=== PATIENT | female | born 1965 ===

== ENCOUNTER → 2019-06-16 | Outpatient (CLI) | payer SELFPAY | END | disposition home or self-care (01) | LOC: LABWHC1 10:31 | PROVIDERS: ATTEND Pediatrics Pediatric Infectious Diseases | DX: Z22.7 Latent tuberculosis (principal) | CPT/HCPCS: 36415; 86480 ==

== ENCOUNTER 2019-08-01 20:04 | Emergency (ER) | payer OTHER ==
--- NOTE | 2019-08-01 20:12 | ED ---
General Adult HPI - General Stated complaint: Fall Time Seen by Provider: 08/01/19 20:09 - History of Present Illness Initial comments: Dictation was produced using [employer] dictation software. please excuse any grammatical, word or spelling errors. This patient was cared for during a federal and state declared state of emergency secondary to Covid 19 Chief Complaint: 54-year-old female past medical history diabetes presents with bilateral upper extremity pain and head pain after fall. History of Present Illness: 54-year-old female she suffered a fall after losing her balance. Patient allegedly fell from a height of approximately 6 feet. Patient tried to catch herself. She fell on outstretched hands however she still ended up striking her head on the concrete. Patient states she has pain to bilateral upper extremities and her forehead. Denies any visual loss. Denies any neck pain. The ROS documented in this emergency department record has been reviewed and confirmed by me. Those systems with pertinent positive or negative responses have been documented in the HPI. All other systems are other negative and/or noncontributory. PHYSICAL EXAM: General Impression: Alert and oriented x3, not in acute distress HEENT: Large left forehead hematoma, extra-ocular movements intact, pupils equal and reactive to light bilaterally, mucous membranes moist. Cardiovascular: Heart regular rate and rhythm Chest: Able to complete full sentences, no retractions, no tachypnea Abdomen: abdomen soft, non-tender, non-distended, no organomegaly Musculoskeletal: Pulses present and equal in all extremities, no peripheral edema Bilateral upper extremities. Gross 40 to the left elbow, gross a former to the right wrist, bilateral radial pulses intact. Neurologically intact. Motor: no focal deficits noted Neurological: CN II-XII grossly intact, no focal motor or sensory deficits noted Skin: Intact with no visualized rashes Psych: Normal affect and mood ED course: 54-year-old female presents after fall. Laboratory evaluation obtained. CBC unremarkable. Coag panel is unremarkable. Metabolic panel shows lactic acidosis 3.8 this is likely because patient wasn't pain. Rest metabolic panel is unremarkable. Serum alcohol is 11. Computed tomography scan of the head and C-spine shows no acute age cranial processes. C-spine is not acute. There is a large left frontal scalp hematoma. Chest x- ray is unremarkable. Bilateral hand and wrist x-ray shows a right impacted comminuted transverse fracture of the distal right radius. Bilateral elbow x- rays obtained showing posterior fracture dislocation of the left elbow. There appears to be a 10 mm intra-articular Vinny fracture of the left radial head. Patient with procedural sedation with fracture dislocation reduction of the left elbow and reduction of the right wrist using propofol. Patient tolerated procedure well. Postreduction images shows acceptable reduction of the right wrist and left elbow. Discussed patient case Dr. Enriquez. Dr. Enriquez requests that CT of the left elbow be obtained. Laceration was repaired at bedside. Please see laceration note and procedural section. CT of the elbow was discussed with orthopedic surgery and radiology. CT imaging of patient's elbow after successful reduction redislocated. There is concern of unstable elbow. Patient splint was readjusted. We do not have elbow specialists at this time. Is recommended that patient be transferred to higher level of care. Discussed patient case with Dr. Park, orthopedic surgery at [facility] who is willing to accept patient for transfer. Patient is agreeable to plan. Case was discussed with Dr. Damon who is willing to accept patient care for ER to ER transfer. EKG interpretation: Ventricular rate 99, normal sinus rhythm, AK interval 170, QRS 82, QTc 467. No AK prolongation, no QTC prolongation, no ST or T-wave changes noted. Overall, this EKG is unremarkable - Related Data Home Medications Medication Instructions Recorded Confirmed Empagliflozin [Jardiance] 25 mg PO DAILY 08/01/19 08/01/19 Olmesartan [Benicar] 20 mg PO DAILY 08/01/19 08/01/19 PARoxetine HCL [Paxil] 30 mg PO DAILY 08/01/19 08/01/19 Allergies Allergy/AdvReac Type Severity Reaction Status Date / Time metformin AdvReac Nausea & Verified 08/01/19 22:32 Vomiting Review of Systems ROS Statement: Those systems with pertinent positive or pertinent negative responses have been documented in the HPI. ROS Other: All systems not noted in ROS Statement are negative. Course Vital Signs 08/01/19 08/01/19 08/01/19 20:12 21:06 22:06 Temperature 98 F Pulse Rate 89 85 80 Respiratory 18 18 17 Rate Blood Pressure 161/64 130/76 153/67 O2 Sat by Pulse 100 99 98 Oximetry 08/01/19 08/01/19 08/01/19 22:10 22:15 22:20 Temperature Pulse Rate 82 80 88 Respiratory 17 17 17 Rate Blood Pressure 158/60 127/64 144/75 O2 Sat by Pulse 98 99 98 Oximetry 08/01/19 08/01/19 08/01/19 22:25 22:30 22:45 Temperature Pulse Rate 80 86 80 Respiratory 17 17 18 Rate Blood Pressure 135/71 143/70 153/67 O2 Sat by Pulse 98 99 99 Oximetry 08/01/19 08/01/19 08/02/19 23:15 23:45 00:15 Temperature Pulse Rate 81 82 78 Respiratory 17 17 17 Rate Blood Pressure 140/73 136/70 142/68 O2 Sat by Pulse 99 99 99 Oximetry Procedures - Laceration Laceration #1 Consent Obtained: verbal consent, written consent Indication: laceration Site: face Size (cm): 1 Description: linear (forehead) Depth: simple, single layer Anesthesia Technique: local infiltration Type of Sutures: nylon Size of Sutures: 5-0 Technique: simple, interrupted (2 stitches) Patient Tolerated Procedure: well - Orthopedic Fracture Reduction Fracture #1 Consent Obtained: verbal consent, written consent Side: right Fracture Reduction Location: radius (wrist) Analgesia: procedural sedation Technique: direct manipulation Post Reduction X-rays Demonstrate: acceptable reduction Post-Reduction Neuro Exam: intact Post-Reduction Vascular Exam: intact Splint Applied: Yes (sugar tong) - Orthopedic Joint Reduction Joint #1 Consent Obtained: verbal consent, written consent Side: left Joint Reduction Location: elbow Analgesia: procedural sedation Technique Used: traction/counter-traction Post-Reduction Neuro Exam: intact Post-Reduction Vascular Exam: intact Post Reduction X-Ray Obtained: Yes Splint Applied: Yes (sugar tong) - Procedural Sedation Procedural Sedation Start Time: 10:10 Procedural Sedation Stop Time: 10:15 Indications: fracture/dislocation reduction ASA Class: II Mallampati Airway Score: 3 Preparation: environmental monitoring technician applied, pulse oximeter, capnometry used, supplemental O2 applied IV Propofol Dose (mgs): 150 Complications: none Interventions: oxygen applied Patient Tolerated Procedure: well Medical Decision Making - Lab Data Result diagrams: 08/01/19 20:27 08/01/19 20:27 Lab Results 08/01/19 08/01/19 08/01/19 Range/Units 20:12 20:17 20:27 WBC 7.8 (3.8-10.6) k/uL RBC 4.89 (3.80-5.40) m/uL Hgb 14.4 (11.4-16.0) gm/dL Hct 43.2 (34.0-46.0) % MCV 88.3 (80.0-100.0) fL MCH 29.3 (25.0-35.0) pg MCHC 33.2 (31.0-37.0) g/dL RDW 14.2 (11.5-15.5) % Plt Count 227 (150-450) k/uL Neutrophils % 57 % Lymphocytes % 35 % Monocytes % 4 % Eosinophils % 2 % Basophils % 1 % Neutrophils # 4.5 (1.3-7.7) k/uL Lymphocytes # 2.7 (1.0-4.8) k/uL Monocytes # 0.3 (0-1.0) k/uL Eosinophils # 0.2 (0-0.7) k/uL Basophils # 0.1 (0-0.2) k/uL PT (9.0-12.0) sec INR (<1.2) APTT (22.0-30.0) sec Sodium (137-145) mmol/L Potassium (3.5-5.1) mmol/L Chloride (98-107) mmol/L Carbon Dioxide (22-30) mmol/L Anion Gap mmol/L BUN (7-17) mg/dL Creatinine (0.52-1.04) mg/dL Est GFR (CKD-EPI)AfAm (>60 ml/min/1.73 sqM) Est GFR (CKD-EPI)NonAf (>60 ml/min/1.73 sqM) Glucose (74-99) mg/dL Lactic Ac Sepsis Rflx Plasma Lactic Acid Dain (0.7-2.0) mmol/L Calcium (8.4-10.2) mg/dL Total Bilirubin (0.2-1.3) mg/dL AST (14-36) U/L ALT (4-34) U/L Alkaline Phosphatase (38-126) U/L Total Creatine Kinase (30-135) U/L CK-MB (CK-2) (0.0-2.4) ng/mL CK-MB (CK-2) Rel Index Troponin I (0.000-0.034) ng/mL Total Protein (6.3-8.2) g/dL Albumin (3.5-5.0) g/dL Amylase (30-110) U/L Lipase (23-300) U/L Serum Alcohol mg/dL Blood Type A Positive Blood Type Confirm A Positive Blood Type Recheck Bld Type Recheck Status Antibody Screen NEGATIVE Spec Expiration Date 08/01/19 08/01/19 08/01/19 Range/Units 20:27 20:27 20:27 WBC (3.8-10.6) k/uL RBC (3.80-5.40) m/uL Hgb (11.4-16.0) gm/dL Hct (34.0-46.0) % MCV (80.0-100.0) fL MCH (25.0-35.0) pg MCHC (31.0-37.0) g/dL RDW (11.5-15.5) % Plt Count (150-450) k/uL Neutrophils % % Lymphocytes % % Monocytes % % Eosinophils % % Basophils % % Neutrophils # (1.3-7.7) k/uL Lymphocytes # (1.0-4.8) k/uL Monocytes # (0-1.0) k/uL Eosinophils # (0-0.7) k/uL Basophils # (0-0.2) k/uL PT 9.9 (9.0-12.0) sec INR 1.0 (<1.2) APTT 24.5 (22.0-30.0) sec Sodium 136 L (137-145) mmol/L Potassium 3.9 (3.5-5.1) mmol/L Chloride 98 (98-107) mmol/L Carbon Dioxide 25 (22-30) mmol/L Anion Gap 13 mmol/L BUN 11 (7-17) mg/dL Creatinine 0.74 (0.52-1.04) mg/dL Est GFR (CKD-EPI)AfAm >90 (>60 ml/min/1.73 sqM) Est GFR (CKD-EPI)NonAf >90 (>60 ml/min/1.73 sqM) Glucose 141 H (74-99) mg/dL Lactic Ac Sepsis Rflx Plasma Lactic Acid Dain (0.7-2.0) mmol/L Calcium 9.9 (8.4-10.2) mg/dL Total Bilirubin 0.7 (0.2-1.3) mg/dL AST 46 H (14-36) U/L ALT 33 (4-34) U/L Alkaline Phosphatase 71 (38-126) U/L Total Creatine Kinase 231 H (30-135) U/L CK-MB (CK-2) 1.9 (0.0-2.4) ng/mL CK-MB (CK-2) Rel Index 0.8 Troponin I <0.012 (0.000-0.034) ng/mL Total Protein 7.9 (6.3-8.2) g/dL Albumin 5.0 (3.5-5.0) g/dL Amylase 62 (30-110) U/L Lipase 137 (23-300) U/L Serum Alcohol 11 mg/dL Blood Type Blood Type Confirm Blood Type Recheck Bld Type Recheck Status Antibody Screen Spec Expiration Date 08/01/19 08/01/19 08/01/19 Range/Units 20:27 20:27 20:58 WBC (3.8-10.6) k/uL RBC (3.80-5.40) m/uL Hgb (11.4-16.0) gm/dL Hct (34.0-46.0) % MCV (80.0-100.0) fL MCH (25.0-35.0) pg MCHC (31.0-37.0) g/dL RDW (11.5-15.5) % Plt Count (150-450) k/uL Neutrophils % % Lymphocytes % % Monocytes % % Eosinophils % % Basophils % % Neutrophils # (1.3-7.7) k/uL Lymphocytes # (1.0-4.8) k/uL Monocytes # (0-1.0) k/uL Eosinophils # (0-0.7) k/uL Basophils # (0-0.2) k/uL PT (9.0-12.0) sec INR (<1.2) APTT (22.0-30.0) sec Sodium (137-145) mmol/L Potassium (3.5-5.1) mmol/L Chloride (98-107) mmol/L Carbon Dioxide (22-30) mmol/L Anion Gap mmol/L BUN (7-17) mg/dL Creatinine (0.52-1.04) mg/dL Est GFR (CKD-EPI)AfAm (>60 ml/min/1.73 sqM) Est GFR (CKD-EPI)NonAf (>60 ml/min/1.73 sqM) Glucose (74-99) mg/dL Lactic Ac Sepsis Rflx Y Plasma Lactic Acid Dain 3.8 H* (0.7-2.0) mmol/L Calcium (8.4-10.2) mg/dL Total Bilirubin (0.2-1.3) mg/dL AST (14-36) U/L ALT (4-34) U/L Alkaline Phosphatase (38-126) U/L Total Creatine Kinase (30-135) U/L CK-MB (CK-2) (0.0-2.4) ng/mL CK-MB (CK-2) Rel Index Troponin I (0.000-0.034) ng/mL Total Protein (6.3-8.2) g/dL Albumin (3.5-5.0) g/dL Amylase (30-110) U/L Lipase (23-300) U/L Serum Alcohol mg/dL Blood Type Blood Type Confirm Blood Type Recheck No Previous Record Bld Type Recheck Status CABO Indicated Antibody Screen Spec Expiration Date 08/04/2019 - 232608/01/19 Range/Units 23:11 WBC (3.8-10.6) k/uL RBC (3.80-5.40) m/uL Hgb (11.4-16.0) gm/dL Hct (34.0-46.0) % MCV (80.0-100.0) fL MCH (25.0-35.0) pg MCHC (31.0-37.0) g/dL RDW (11.5-15.5) % Plt Count (150-450) k/uL Neutrophils % % Lymphocytes % % Monocytes % % Eosinophils % % Basophils % % Neutrophils # (1.3-7.7) k/uL Lymphocytes # (1.0-4.8) k/uL Monocytes # (0-1.0) k/uL Eosinophils # (0-0.7) k/uL Basophils # (0-0.2) k/uL PT (9.0-12.0) sec INR (<1.2) APTT (22.0-30.0) sec Sodium (137-145) mmol/L Potassium (3.5-5.1) mmol/L Chloride (98-107) mmol/L Carbon Dioxide (22-30) mmol/L Anion Gap mmol/L BUN (7-17) mg/dL Creatinine (0.52-1.04) mg/dL Est GFR (CKD-EPI)AfAm (>60 ml/min/1.73 sqM) Est GFR (CKD-EPI)NonAf (>60 ml/min/1.73 sqM) Glucose (74-99) mg/dL Lactic Ac Sepsis Rflx Plasma Lactic Acid Dain 2.2 H* (0.7-2.0) mmol/L Calcium (8.4-10.2) mg/dL Total Bilirubin (0.2-1.3) mg/dL AST (14-36) U/L ALT (4-34) U/L Alkaline Phosphatase (38-126) U/L Total Creatine Kinase (30-135) U/L CK-MB (CK-2) (0.0-2.4) ng/mL CK-MB (CK-2) Rel Index Troponin I (0.000-0.034) ng/mL Total Protein (6.3-8.2) g/dL Albumin (3.5-5.0) g/dL Amylase (30-110) U/L Lipase (23-300) U/L Serum Alcohol mg/dL Blood Type Blood Type Confirm Blood Type Recheck Bld Type Recheck Status Antibody Screen Spec Expiration Date Disposition Clinical Impression: Fracture dislocation of elbow joint, Wrist fracture Disposition: OTHER INSTITUTION NOT DEFINED Condition: Fair Referrals: None,Stated [Primary Care Provider] - 1-2 days Time of Disposition: 00:48 - Out of Hospital Transfer - Req. Specs Out of Hospital Transfer - Requested Specifics: Other Emergency Center ([facility]
[2019-08-01 20:16] VITALS: TEMP 98
[2019-08-01 20:33] LABS: Basophils # (A) 0.1 k/uL (0-0.2); Basophils % (A) 1 %; Eosinophils # (A) 0.2 k/uL (0-0.7); Eosinophils % (A) 2 %; HCT 43.2 % (34.0-46.0); HGB 14.4 gm/dL (11.4-16.0); Lymphocytes # (A) 2.7 k/uL (1.0-4.8); Lymphocytes % (A) 35 %; MCH 29.3 pg (25.0-35.0); MCHC 33.2 g/dL (31.0-37.0); MCV 88.3 fL (80.0-100.0); Mean Platelet Volume 7.1; Monocytes # (A) 0.3 k/uL (0-1.0); Monocytes % (A) 4 %; Neutrophils # (A) 4.5 k/uL (1.3-7.7); Neutrophils % (A) 57 %; Platelet Count 227 k/uL (150-450); RBC 4.89 m/uL (3.80-5.40); RDW 14.2 % (11.5-15.5); WBC 7.8 k/uL (3.8-10.6)
[2019-08-01 20:41] LABS: Partial Thromboplastin Time 24.5 sec (22.0-30.0); Prothrombin Time 9.9 sec (9.0-12.0)
[2019-08-01 20:42] LABS: Creatine Kinase 231 U/L (30-135)
[2019-08-01 20:43] LABS: ALT 33 U/L (4-34); AST 46 U/L (14-36); African American GFR (CKD) >90 (>60 ml/min/1.73 sqM); Alcohol 11 mg/dL; Alkaline Phosphatase 71 U/L (38-126); Amylase 62 U/L (30-110); Anion Gap 13 mmol/L; Blood Urea Nitrogen 11 mg/dL (7-17); Calcium 9.9 mg/dL (8.4-10.2); Carbon Dioxide 25 mmol/L (22-30); Chloride 98 mmol/L (98-107); Glucose 141 mg/dL (74-99); Non-African American GFR(CKD) >90 (>60 ml/min/1.73 sqM); Potassium 3.9 mmol/L (3.5-5.1); Sodium 136 mmol/L (137-145); Total Bilirubin 0.7 mg/dL (0.2-1.3); Total Protein 7.9 g/dL (6.3-8.2)
[2019-08-01] MEDS ORDERED: MORPHINE SULFATE 4 MG/ML SYRINGE IV STA ×2 (20:49→23:43)
[2019-08-01 20:54] LABS: Creatine Kinase MB 1.9 ng/mL (0.0-2.4); Troponin I <0.012 ng/mL (0.000-0.034)
--- NOTE | 2019-08-01 21:06 | CT ---
EXAMINATION TYPE: CT brain rebeca peterson DATE OF EXAM: 08/01/2019 COMPARISON: None HISTORY: Multiple lacerations after fall injury CT DLP: 1482.2 mGycm Automated exposure control for dose reduction was used. There is large left frontal scalp hematoma. This measures up to 18 mm in thickness. Ventricles have n ormal size. There is no mass effect nor midline shift. There is no sign of intracranial hemorrhage. T he calvarium is intact. Cervical vertebra have normal alignment. There is posterior endplate spur formation at C4-5. Facet addison ints are intact. The skull base is intact. IMPRESSION: No acute intracranial abnormality. Left frontal scalp hematoma. Minor degenerative changes in the cervical spine. No fracture.
[2019-08-01] MEDS ORDERED: PROPOFOL 10 MG/ML 20 ML VIAL IV ONE (21:31)
[2019-08-01] MEDS ORDERED: IBUPROFEN 800 MG TAB PO STA (21:31)
[2019-08-01] MEDS ORDERED: DIPH,PERTUS(ACELL)TETVAC-LF 0.5 ML VIAL IM ONE (21:37)
--- NOTE | 2019-08-01 21:42 | XR ---
EXAMINATION TYPE: XR chest 1V portable DATE OF EXAM: 08/01/2019 COMPARISON: NONE HISTORY: Chest pain TECHNIQUE: Single view FINDINGS: Heart and mediastinum are normal. Lungs are clear. Diaphragm is normal. Bony thorax appears normal. IMPRESSION: Normal chest.
--- NOTE | 2019-08-01 21:44 | XR ---
EXAMINATION TYPE: XR wrist complete BILATERAL DATE OF EXAM: 08/01/2019 COMPARISON: NONE HISTORY: Bilateral wrist pain TECHNIQUE: 3 views each wrist FINDINGS: There is impacted transverse comminuted fracture distal radial metaphysis. There is some 8 mm posterior displacement of the distal major fragments. The distal ulna appears intact. Right The carpal bones are intact bilaterally. Distal left radius and ulna appear intact. The metacarpals a re intact. IMPRESSION: No acute abnormality of the left wrist. Impacted comminuted transverse fracture distal right radius. No dislocation.
--- NOTE | 2019-08-01 21:46 | XR ---
EXAMINATION TYPE: XR elbow complete bilateral DATE OF EXAM: 08/01/2019 COMPARISON: NONE HISTORY: Elbow pain TECHNIQUE: 5 views FINDINGS: The right elbow joint appears intact. There is spurring on the olecranon process of the uln a. There is a posterior dislocation of the left elbow joint. There is 10 mm intra-articular large chip f racture of the left radial head. IMPRESSION: Negative right elbow exam. There is posterior fracture dislocation of the left elbow joint.
[2019-08-01] MEDS ORDERED: LIDOCAINE 1%-EPI 1:100,000 20 ML VIAL INTRAARTIC ONE (22:15)
--- NOTE | 2019-08-01 22:29 | XR ---
EXAMINATION TYPE: XR wrist limited RT DATE OF EXAM: 08/01/2019 COMPARISON: Today HISTORY: Post reduction TECHNIQUE: Single view FINDINGS: There is a cast fixing the distal radius fracture. There is 5 mm posterior displacement of the distal major fragment on the lateral view. There is no dislocation. There is fairly normal alignm ent. IMPRESSION: Satisfactory reduction.
[2019-08-01] MEDS ORDERED: SODIUM CHLORIDE 0.9% 1,000 ML IV ONE (22:30)
--- NOTE | 2019-08-01 22:31 | XR ---
EXAMINATION TYPE: XR elbow limited LT DATE OF EXAM: 08/01/2019 COMPARISON: NONE HISTORY: Post reduction TECHNIQUE: Single view FINDINGS: Single lateral view appears to show anatomic reduction of the elbow joint. There is large c hip fracture of the radial head. Detail is limited on this single view. There is a cast fixing the fo rearm. IMPRESSION: Satisfactory reduction of the dislocated elbow joint.
[2019-08-01] MEDS ORDERED: ACETAMINOPHEN TAB 500 MG TAB PO STA (23:41)
--- NOTE | 2019-08-01 23:54 | CT ---
EXAMINATION TYPE: CT elbow LT wo con DATE OF EXAM: 08/01/2019 COMPARISON: Today HISTORY: fall CT DLP: 3910.2 mGycm Automated exposure control for dose reduction was used. Multiple axial sections were obtained from the distal humerus to the proximal ulna without contrast. There is 1.4 cm intra-articular large chip fracture of the lateral aspect of the radial head. This is best seen on image 16 series 302. There is posterior dislocation of the ulna. This is best seen on i mage 61 series 301. There is a triangular-shaped 8 mm chip fracture of the coronoid process of the ul na also seen on image 60 series 301. The humerus appears intact. IMPRESSION: There is posterior dislocation of the ulna that is a change compared to the postreduction film obtain ed 40 minutes ago. This suggests significant ligamentous tear and instability. There are fractures of the radial head and the coronoid process of the ulna as above.
[2019-08-02 00:43] VITALS: RESP 17
[2019-08-02 00:45] VITALS: BP 142/68; PULSE 78
[2019-08-03] MEDS ORDERED: SODIUM CHLORIDE 0.9% 1,000 ML IV ONE (22:30)
== END 2019-08-02 01:31 | disposition other institution (70) ==
LOC: EC 20:04
DX: S52.591A Other fractures of lower end of right radius, initial encounter for closed fracture (principal); S53.125A Posterior dislocation of left ulnohumeral joint, initial encounter; S42.402A Unspecified fracture of lower end of left humerus, initial encounter for closed fracture; S00.03XA Contusion of scalp, initial encounter; E11.9 Type 2 diabetes mellitus without complications; I10 Essential (primary) hypertension; E87.2 Acidosis; Z79.899 Other long term (current) drug therapy; Z23 Encounter for immunization; Z79.84 Long term (current) use of oral hypoglycemic drugs; Z88.8 Allergy status to other drugs, medicaments and biological substances; W17.89XA Other fall from one level to another, initial encounter; Y93.H2 Activity, gardening and landscaping
CPT/HCPCS: 36415; 86900; 86901; 80053; 82150; 82550; 82553; 83605; 83690; 84484; 85025; 85610; 85730; 86850; 80320; 73110; 73080; 73070; 73100; 71045; 72125; 70450; 73200; 90715; 25605; 99152; 99285; 90471; 96374; 96376; 24600; 12011; J2270; J2704

== ENCOUNTER → 2019-10-18 | Outpatient (CLI) | payer OTHER ==
--- NOTE | 2019-10-18 13:25 | XR ---
EXAMINATION TYPE: XR elbow complete LT DATE OF EXAM: 10/18/2019 CLINICAL HISTORY: Left elbow fracture. TECHNIQUE: Frontal, lateral and oblique images of the left elbow are obtained. COMPARISON: Left elbow x-ray and CT August 01, 2019. FINDINGS: There is interval surgery with new partial osteotomy and placement of new metallic radial head. There is additional placement of fixating plate and screws through the distal humerus along the radial aspect extending into the proximal ulna. 2 additional new metallic anchors are noted. New mod erate sized spur ulnar aspect on the lateral humeral articulation. Alignment is satisfactory. IMPRESSION: As above.
--- NOTE | 2019-10-18 13:27 | XR ---
EXAMINATION TYPE: XR wrist complete RT DATE OF EXAM: 10/18/2019 CLINICAL HISTORY: Pain after fall injury. TECHNIQUE: Frontal, lateral, scaphoid, and oblique images of the right wrist are obtained. COMPARISON: Right wrist x-ray August 01, 2019. FINDINGS: There is persistent comminuted slightly displaced impacted intra-articular fracture distal radial meta-epiphysis. Some step-off of the ulnar fracture fragment relative to the lunate articulat ion is redemonstrated and stable. Carpal joint spaces are maintained. Soft tissue is unremarkable. IMPRESSION: As above.
== END | disposition home or self-care (01) ==
LOC: RADXRMAIN 12:55
PROVIDERS: ATTEND Orthopaedic Surgery
DX: S52.501D Unspecified fracture of the lower end of right radius, subsequent encounter for closed fracture with routine healing (principal)